=== PATIENT | female | born 2000 | race Caucasian/White ===

== ENCOUNTER 2018-06-19 17:17 | Emergency (ER) | payer OTHER ==
[~2018-06-19] VITALS: Ht 172.7 cm; Wt 83.5 kg
[~2018-06-19 17:17] MED LIST: BIRTH CONTROL IMPLAN; KEFLEX500 MG PO; NORCO 5-325 TA1 EACH PO; PEPCID20 MG PO; ZOFRAN ODT4 MG SL
[2018-06-19] MEDS ORDERED: NORCO 5-325 TA1 EACH PO (19:03)
[2018-06-19] MEDS ORDERED: PREDNISONE20 MG PO (19:03)
== END 2018-06-19 19:15 | disposition home or self-care (01) ==
LOC: ED 17:17
DX: J02.9 Acute pharyngitis, unspecified (principal)
CPT/HCPCS: 99282; J7512

== ENCOUNTER 2018-07-31 09:22 | Emergency (ER) | payer OTHER ==
[~2018-07-31] VITALS: Ht 172.7 cm; Wt 83.5 kg
[~2018-07-31 09:22] MED LIST changes: +PREDNISONE20 MG PO
== END 2018-07-31 09:38 | disposition home or self-care (01) ==
LOC: ED 09:22
DX: H92.02 Otalgia, left ear (principal)

== ENCOUNTER 2019-05-29 22:15 | Emergency (ER) | payer OTHER ==
[~2019-05-29] VITALS: Ht 170.2 cm; Wt 83.9 kg
[~2019-05-29 22:15] MED LIST changes: +OMEPRAZOLE20 MG PO
--- OUTSIDE RECORDS SUMMARY | 2019-05-29 22:18 | XMS ---
PreManage Notification: YISSEL ROBINS Security Instructional Aide Events No recent Security Events currently on file CRITERIA MET - Group Notification - [facility] - Has Care Guidelines CARE PROVIDERS JAIMIE COWART [facility] 08/02/2018-Current PHONE: [phone] Yenny has no Care Guidelines for this patient. Care History Medical/Surgical 10/17/2018 [facility] - CHW CALLED PATIENT AND PATIENT DID NOT ANSWER HER PHONE- VOICEMAIL NOT SET UP. - NO PCP LETTER HAS BEEN SENT TO PATIENT. - PATIENT NO SHOWED TO ESTABLISHING APT WITH DR COWART ON 2017. - PATIENT DOES NOT HAVE A PCP. - PLEASE REFER PATIENT TO [facility] IN CLINIC TO ESTABLISH CARE WITH A PROVIDER ESanya V[facility]IT COUNT (12 MO.) [facility] TOTAL 7 NOTE: Visits indicate total known visits. 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 - Right upper quadrant pain 10/16/2018 21:03 [facility] [place] TYPE: Emergency COMPLAINT: - ABD PAIN DIAGNOSES: - Functional dyspepsia - Upper abdominal pain, unspecified 10/15/2018 12:13 [facility] [place] TYPE: Emergency COMPLAINT: - RIB PAIN NON INJURY DIAGNOSES: - Epigastric pain 07/31/2018 09:23 [facility] [place] TYPE: Emergency COMPLAINT: - L EAR PAIN DIAGNOSES: - Otalgia, left ear 06/19/2018 17:18 [facility] [place] TYPE: Emergency COMPLAINT: - SORE THROAT DIAGNOSES: - Acute pharyngitis, unspecified INPATIENT VISIT TRACKING (12 MO.) No inpatient visits to display in this time frame [email or web address]
== END 2019-05-29 23:50 | disposition home or self-care (01) ==
LOC: ED 22:15
DX: M25.511 Pain in right shoulder (principal); R20.2 Paresthesia of skin; Z90.49 Acquired absence of other specified parts of digestive tract
CPT/HCPCS: 99283

== ENCOUNTER 2019-10-13 16:01 | Emergency (ER) | payer OTHER ==
[~2019-10-13] VITALS: Ht 170.2 cm; Wt 83.9 kg
[~2019-10-13 16:01] MED LIST changes: +CYCLOBENZAPRINE5 MG PO; +IBUPROFEN600 MG PO
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
[2019-10-13] MEDS ORDERED: LEVONORGESTREL1 EAC2 PO (16:29)
== END 2019-10-13 18:30 | disposition home or self-care (01) ==
LOC: ED 16:01
DX: R10.9 Unspecified abdominal pain (principal)
CPT/HCPCS: 80053; 85025; 99284

== ENCOUNTER 2021-01-02 20:57 | Emergency (ER) | payer OTHER ==
[~2021-01-02] VITALS: Ht 172.7 cm; Wt 98.0 kg
[~2021-01-02 20:57] MED LIST changes: +LEVONORGESTREL1 EAC2 PO; +LEVOTHYROXINE137 MCG PO; +SERTRALINE HCL50 MG PO
--- OUTSIDE RECORDS SUMMARY | 2021-01-02 21:00 | XMS ---
PreManage Notification: YISSEL ROBINS Security Casting Tester Events No recent Security Events currently on file CRITERIA MET - Group Notification CARE PROVIDERS Garfield Davis [facility] MD PHONE: [phone] JAIMIE COWART [facility] 08/02/2018-Current PHONE: [phone] Yenny has no Care Guidelines for this patient. Care History Medical/Surgical 10/16/2019 [facility] - [facility] REFERRAL MADE- FOR CLOSE CASE MANAGEMENT FOLLOW UP 05/30/2019 [facility] - [facility] CASE MANAGEMENT REFERRAL MADE- PATIENT HAS EOCCO AND NO PCP. 10/17/2018 [facility] - CHW CALLED PATIENT AND PATIENT DID NOT ANSWER HER PHONE- VOICEMAIL NOT SET UP. - NO PCP LETTER HAS BEEN SENT TO PATIENT. - PATIENT NO SHOWED TO ESTABLISHING APT WITH DR COWART ON 2017. - PATIENT DOES NOT HAVE A PCP. - PLEASE REFER PATIENT TO [facility] IN CLINIC TO ESTABLISH CARE WITH A PROVIDER ELiam. VISIT COUNT (12 MO.) 2 [facility] 2 [facility] TOTAL 4 NOTE: Visits indicate total known visits. 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
[2021-01-03] MEDS ORDERED: MICONAZOLE5 GM MISC (00:25)
== END 2021-01-03 00:37 | disposition home or self-care (01) ==
LOC: ED 20:57
DX: O98.812 Other maternal infectious and parasitic diseases complicating pregnancy, second trimester (principal); B37.2 Candidiasis of skin and nail; Z3A.17 17 weeks gestation of pregnancy
CPT/HCPCS: 99283

== ENCOUNTER 2025-09-17 22:16 | Emergency (ER) | payer OTHER ==
[~2025-09-17] VITALS: Ht 170.2 cm; Wt 113.0 kg
[~2025-09-17 22:16] MED LIST changes: +MICONAZOLE5 GM MISC
[2025-09-17] MEDS ORDERED: KETOROLAC TROMETHAMINE 60 MG/2 ML VIAL IM ONE (23:00)
[2025-09-17] MEDS ORDERED: CYCLOBENZAPRINE HCL 10 MG HOME.PACK PO ONE (23:45)
[2025-09-17] MEDS ORDERED: CYCLOBENZAPRINE10 MG PO (23:52)
[2025-09-18 00:13] VITALS: BP 134/87
== END 2025-09-18 00:14 | disposition home or self-care (01) ==
LOC: ED 22:16
DX: S76.012A Strain of muscle, fascia and tendon of left hip, initial encounter (principal); S63.642A Sprain of metacarpophalangeal joint of left thumb, initial encounter; X58.XXXA Exposure to other specified factors, initial encounter
CPT/HCPCS: 73140; 73502; 84703; 96372; 99283; J1885